=== PATIENT | female | born 1980 | race Caucasian/White ===

== ENCOUNTER → 2025-05-30 | Outpatient (CLI) | payer MEDICAID, SELFPAY ==
[2025-05-30 17:29] LABS: HIV Nonreactive (Nonreactive); Syphilis Antibodies Nonreactive (Nonreactive)
[2025-06-01 06:08] LABS: HEPATITIS B SURFACE AG Negative (Negative); Hep C Antibodies Non Reactive (Non Reactive)
== END | disposition home or self-care (01) ==
PROVIDERS: PCP Nurse Practitioner Family; Visit Provider Nurse Practitioner Family
DX: Z11.3 Encounter for screening for infections with a predominantly sexual mode of transmission (principal)
CPT/HCPCS: 36415; 80074; 86695; 86696; 86703; 86780